=== PATIENT | female | born 1955 | race Caucasian/White ===

== ENCOUNTER → 2016-07-28 | Outpatient (CLI) | payer BC ==
--- NOTE | 2016-07-28 21:56 | PN ---
I am seeing this patient in followup regarding her obstructive sleep apnea. The patient was recently diagnosed having CAMILA, moderate in severity, with an AHI of 18.2, worse during REM. The patient is currently on a CPAP pressure of 10 cm of water. Her compliance data showed excellent CPAP use and she is averaging around 5.7 hours of CPAP use per night. His leak factor is only at 10 L and her AHI while on treatment is down to 1.4 and she is utilizing a full face Simplus mask. She continues to lose weight and she needs to weigh around 278 at the time of diagnosis and currently she is down to 259. She is much more alert and awake during the day. His sleep quality was improved and she is able to sleep better and she denies having any major sleep fragmentation or nocturnal arousals. Her [place] score is only at 5. BP is 140/81, pulse 61, respirations 16, respirations 16, temperature is 97.9. Weight is 259. [place] score is at 5, saturation 97%. GENERAL APPEARANCE: Calm, comfortable. HEENT: Negative for JVD. There is no goiter or neck mass. Chronic posterior pharynx. LUNGS: Clear to auscultation. Heart sounds: Regular rate and rhythm. Normal S1 and S2. No murmurs. ABDOMEN: Soft and nontender. No organomegaly. EXTREMITIES: No edema. No cyanosis or clubbing. IMPRESSION: 1. Symptomatic obstructive sleep apnea with an apnea-hypopnea index of 18.2, worse during rapid eye movement, currently receiving successful continuous positive airway pressure therapy at a pressure of 10. 2. Hypersomnia, improved. 3. Obesity with a body mass index of 33.2, lost weight. Current weight is down to 259. PLAN: 1. Continue treatment at the same level of pressure. 2. Encourage further weight loss. 3. Optimize sleep hygiene measures. 4. See me back in a year's time; earlier if needed.
== END | disposition home or self-care (01) ==
LOC: SLEEP 13:27
PROVIDERS: ATTEND Internal Medicine Critical Care Medicine
DX: G47.33 Obstructive sleep apnea (adult) (pediatric) (principal); G47.10 Hypersomnia, unspecified; E66.9 Obesity, unspecified; Z68.33 Body mass index [BMI] 33.0-33.9, adult

== ENCOUNTER → 2017-02-26 | Outpatient (CLI) | payer BC ==
--- NOTE | 2017-03-01 11:52 | MM ---
Reason for exam: screening (asymptomatic). Last mammogram was performed 1 year ago. History: Patient is postmenopausal. Family history of breast cancer in mother at age 60, breast cancer in maternal aunt at age 60, and breast cancer in maternal cousin at age 58. Physical Findings: A clinical breast exam by your physician is recommended on an annual basis and results should be correlated with mammographic findings. MG Screening Mammo w CAD Bilateral CC and MLO view(s) were taken. Prior study comparison: February 25, 2016, bilateral MG screening mammo w CAD. October 30, 2014, bilateral MG diagnostic mammo w CAD AC. There are scattered fibroglandular densities. There is no discrete abnormality. No significant changes when compared with prior studies. ASSESSMENT: Negative, BI-RAD 1 RECOMMENDATION: Routine screening mammogram of both breasts in 1 year.
== END | disposition home or self-care (01) ==
LOC: RADMAMWWP 10:40
PROVIDERS: ATTEND Family Medicine
DX: Z12.31 Encounter for screening mammogram for malignant neoplasm of breast (principal)

== ENCOUNTER → 2018-03-29 | Outpatient (CLI) | payer BC ==
--- NOTE | 2018-03-31 11:23 | MM ---
Reason for exam: screening (asymptomatic). Last mammogram was performed 1 year and 1 month ago. History: Patient is postmenopausal. Family history of breast cancer in mother at age 60, breast cancer in maternal aunt at age 60, and breast cancer in maternal cousin at age 58. Physical Findings: A clinical breast exam by your physician is recommended on an annual basis and results should be correlated with mammographic findings. MG 3D Screening Mammo W/Cad Bilateral CC and MLO view(s) were taken. CV view(s) were taken of the left breast. Prior study comparison: February 26, 2017, bilateral MG screening mammo w CAD. February 25, 2016, bilateral MG screening mammo w CAD. There are scattered fibroglandular densities. There is no discrete abnormality. No significant changes when compared with prior studies. ASSESSMENT: Negative, BI-RAD 1 RECOMMENDATION: Routine screening mammogram of both breasts in 1 year.
== END | disposition home or self-care (01) ==
LOC: RADMAMWWP 10:46
PROVIDERS: ATTEND Family Medicine
DX: Z12.31 Encounter for screening mammogram for malignant neoplasm of breast (principal)
CPT/HCPCS: 77063; 77067

== ENCOUNTER → 2018-05-13 | Outpatient (CLI) | payer BC ==
--- NOTE | 2018-05-15 17:56 | XR ---
EXAMINATION TYPE: XR Hip Complete RT DATE OF EXAM: 05/13/2018 COMPARISON: NONE HISTORY: Pain TECHNIQUE: 2 views submitted FINDINGS: There is no evidence of erosive change or acute fracture. IMPRESSION: 1. No evidence of acute fracture or dislocation. If symptoms persist recommend MRI.
== END | disposition home or self-care (01) ==
LOC: RADXRMAIN 16:58
PROVIDERS: ATTEND Family Medicine
DX: M25.551 Pain in right hip (principal)
CPT/HCPCS: 73502

== ENCOUNTER → 2019-07-18 | Outpatient (CLI) | payer BC ==
--- NOTE | 2019-07-19 13:05 | MM ---
Reason for exam: screening (asymptomatic). Last mammogram was performed 1 year and 4 months ago. History: Patient is postmenopausal. Family history of breast cancer in mother at age 60, breast cancer in maternal aunt at age 60, and breast cancer in maternal cousin at age 58. Physical Findings: A clinical breast exam by your physician is recommended on an annual basis and results should be correlated with mammographic findings. MG 3D Screening Mammo W/Cad Bilateral CC and MLO view(s) were taken. Prior study comparison: March 29, 2018, bilateral MG 3d screening mammo w/cad. February 26, 2017, bilateral MG screening mammo w CAD. There are scattered fibroglandular densities. There is chronic nodularity in the right breast. Benign vascular calcifications on the right. No significant changes when compared with prior studies. ASSESSMENT: Negative, BI-RAD 1 RECOMMENDATION: Routine screening mammogram of both breasts in 1 year.
== END | disposition home or self-care (01) ==
LOC: RADMAMWWP 10:40
PROVIDERS: ATTEND Family Medicine
DX: Z12.31 Encounter for screening mammogram for malignant neoplasm of breast (principal)
CPT/HCPCS: 77063; 77067

== ENCOUNTER → 2020-02-15 | Outpatient (CLI) | payer BC ==
--- NOTE | 2020-02-19 08:58 | CONS ---
CONSULTATION DATE OF SERVICE: 02/15/2020 A 64-year-old lady who has been evaluated in the Sleep Center for obstructive sleep apnea-hypopnea syndrome. HISTORY OF PRESENT ILLNESS/SLEEP-WAKE EVALUATION: Patient had been diagnosed with obstructive sleep apnea about 4-1/2 years ago. Since that time, she has been on treatment with CPAP and she continues to use her CPAP equipment every night for the whole night. According to her , she does not snore with the machine and she is actually able to sleep through the night without awakenings at night. Her sleep schedule from 12:30 or 1 a.m. until 7:30 or 8 a.m. No problems with falling asleep, although she has a TV set in the bedroom. She usually sleeps on the side position. No history of hypnagogic hallucinations, sleep paralysis or cataplexy. [place] Sleepiness Scale is in normal range of 4. I checked the patient's CPAP unit. CPAP pressure is 10 cm of water. Usage is 26/30 nights for more than 4 hours with average usage 5.4 hours per night. Leak is 16 L/minute, which is borderline. Apnea-hypopnea index only 0.8, which is perfect. The patient is using AirFit F20 small full-face mask. PAST MEDICAL HISTORY: Positive for diabetes mellitus. PAST SURGICAL HISTORY: , cholecystectomy, total hysterectomy. MEDICATIONS: Metformin, baby aspirin. SOCIAL HISTORY: Negative for smoking or using alcohol. REVIEW OF SYSTEMS: Mostly negative. Patient sleeps well at night. FAMILY HISTORY: Hypertension, heart problems, cancer. PHYSICAL EXAMINATION: lady without distress. BP 149/79, HR 71, RR 15, height 4 foot, 11-1/2 inches, weight 270 pounds, body mass index 53.6, temperature 98.4, oxygen saturation at room air 99%. OROPHARYNX: Low position of soft palate. NECK: Wide, measuring, 16 inches in circumference. LUNGS: Clear to percussion and to auscultation. Good air exchange. No wheezing or rhonchi. HEART: S1, S2 regular. No murmurs, gallops or rubs. ABDOMEN: Obese. EXTREMITIES: No clubbing or cyanosis. MACHINE REPAIRER MAINTENANCE: Awake, alert, and oriented X3. Cranial nerves 2 to 7 intact. There is no fasciculation or atrophy. noted. No focal deficits observed. IMPRESSION: 1. Obstructive sleep apnea-hypopnea syndrome diagnosed about 4-1/2 years ago. Patient demonstrated great compliance with treatment, benefitting from treatment. 2. Obesity. 3. Diabetes mellitus. 4. Status post . 5. Status post cholecystectomy. 6. Status post hysterectomy. PLAN: 1. Patient will continue to use CPAP equipment every night for the whole night. 2. Prescription for all necessary CPAP supplies, including full-face mask, tube, filters. 3. Losing weight. 4. Sleep hygiene with regular time in bed for at least 7-1/2 to 8 hours. 5. No driving if feeling any sleepiness. Thank you very much for allowing me to participate in the management of your patient. Sincerely, Triston Guzman MD, PhD, FAASM Diplomat of [place] [employer] [employer] Shop Supervisor of [facility] [place] MMODL / VASYL: [id number] /
== END | disposition home or self-care (01) ==
LOC: SLEEP 15:40
PROVIDERS: ATTEND Internal Medicine
DX: G47.33 Obstructive sleep apnea (adult) (pediatric) (principal); E11.9 Type 2 diabetes mellitus without complications; E66.9 Obesity, unspecified
CPT/HCPCS: 99211

== ENCOUNTER → 2020-07-19 | Outpatient (CLI) | payer BC ==
--- NOTE | 2020-07-22 11:55 | MM ---
Reason for exam: screening (asymptomatic). Last mammogram was performed 1 year ago. History: Patient is postmenopausal. Family history of breast cancer in mother at age 60, breast cancer in maternal aunt at age 60, and breast cancer in maternal cousin at age 58. Physical Findings: A clinical breast exam by your physician is recommended on an annual basis and results should be correlated with mammographic findings. MG 3D Screening Mammo W/Cad Bilateral CC and MLO view(s) were taken. Prior study comparison: July 18, 2019, bilateral MG 3d screening mammo w/cad. March 29, 2018, bilateral MG 3d screening mammo w/cad. There are scattered fibroglandular densities. There is chronic nodularity in the right upper outer quadrant. No significant changes when compared with prior studies. ASSESSMENT: Negative, BI-RAD 1 RECOMMENDATION: Routine screening mammogram of both breasts in 1 year.
== END | disposition home or self-care (01) ==
LOC: RADMAMWWP 10:02
PROVIDERS: ATTEND Family Medicine
DX: Z12.31 Encounter for screening mammogram for malignant neoplasm of breast (principal)
CPT/HCPCS: 77063; 77067

== ENCOUNTER → 2021-03-03 | Outpatient (CLI) | payer MEDICARE ==
--- NOTE | 2021-03-03 12:37 | FL ---
EXAMINATION TYPE: FL barium swallow DATE OF EXAM: 03/03/2021 CLINICAL INDICATION: 65-year-old female R13.19, dysphagia. Intermittent sensation of food sticking in the throat, needing to vomit to clear. COMPARISON: None Total Fluoroscopy Time: 1 minute 33 seconds 40 images obtained. FINDINGS: The swallowing mechanism is normal. Questionable filling defect along the anterior hypopharynx on a c ouple images. Suspect oblique structural overlap as the patient could not completely position squarel y for a lateral view. Otherwise, the cervical and thoracic portions have a normal course and caliber. Mild tertiary perista ltic waves are demonstrated within the thoracic esophagus. The mucosa is normal and otherwise no persistent filling defect is encountered. There is a small hiatal hernia. No gastroesophageal reflux was visualized or could be elicited during the course of the exam. IMPRESSION: 1. Questionable filling defect along the anterior hypopharynx on a couple images (image 10, 11, and 2 8). Suspect structure overlap due to oblique positioning. Given the patient's symptoms localizing to this level, direct visualization to exclude a mucosal lesion. 2. Small hiatal hernia. No gastroesophageal reflux identified. 3. Mild age-related dysmotility.
== END | disposition home or self-care (01) ==
LOC: RADUSWWP 09:02
PROVIDERS: ATTEND Family Medicine
DX: K44.9 Diaphragmatic hernia without obstruction or gangrene (principal); R13.19 Other dysphagia
CPT/HCPCS: 74220

== ENCOUNTER 2021-05-15 10:55 | Day surgery (SDC) | payer MEDICARE ==
[2021-05-13 15:48] VITALS: BMI 45.8
[~2021-05-15 10:55] MED LIST: DEXAMETHASONE SOD PHOSPHATE 4 MG/ML 1 ML VIAL IV ONE; DEXAMETHASONE SOD PHOSPHATE 4 MG/ML 1 ML VIAL IV PRN; FAMOTIDINE 20 MG/2 ML VIAL IV PRN; HYDROmorphone 0.5 MG/0.5 ML SYRINGE IVP PRN; LACTATED RINGERS 1,000 ML IV SCH; LIDOCAINE 1% (10MG/ML) FOR IV START INTRADERMA PRN; MIDAZOLAM 2 MG/2 ML VIAL IV PRN; ONDANSETRON 4 MG/2 ML VIAL IVP ONE; ONDANSETRON 4 MG/2 ML VIAL IVP PRN
[2021-05-15 12:12] LABS: Glucose,Whole Blood 138 mg/dL (75-99)
[2021-05-15] MEDS ORDERED: LIDOCAINE 1% INJ 10MG/ML (20 ML MDV) ONE (14:30)
[2021-05-15] MEDS ORDERED: .fentaNYL (PF) 50 MCG/ML 2 ML AMP ONE (14:30)
[2021-05-15] MEDS ORDERED: MIDAZOLAM 2 MG/2 ML VIAL ONE (14:30)
[2021-05-15] MEDS ORDERED: PROPOFOL 10 MG/ML 20 ML VIAL IV ONE (14:30)
[2021-05-15] MEDS ORDERED: SUCCINYLCHOLINE CHLORIDE 100 MG/5 ML SYR IV ONE (14:30)
[2021-05-15] MEDS ORDERED: LACTATED RINGERS 1,000 ML IV ONE (15:20)
--- NOTE | 2021-05-15 15:37 | P.OP ---
Description of Procedure: This patient was taken to the operative room and placed in the supine position. A general inhalation anesthetic was administered to the patient by mask and intubated with a #5 ZINC PLATER tube. The patient was monitored throughout the entire case by the department of anesthesia. A tooth and gum guard was placed and a Jako laryngoscope was placed into the mouth with care to avoid any trauma to the lips teeth gums or tongue. The entire oropharynx and hypopharynx was evaluated. Reevaluated the base of tongue, vallecula, epiglottis, true and false vocal cords, lateral pharynx, postcricoid space, piriform sinuses, etc. etc. This was then placed on suspension on a Lewy and with use of a high-powered microscope examination was performed. Patient had a lymphoid mass on the base of the tongue that was biopsied. They tissue specimen was sent in saline fresh to rule out lymphoma. Bleeding stopped spontaneously and with use of adrenaline cottonoids and pressure. Excellent results were obtained. all instrumentation was removed. Patient was taken to postanesthesia recovery in excellent condition.
[2021-05-15 15:42] VITALS: TEMP 97.6
[2021-05-15 16:44] VITALS: RESP 18
[2021-05-15 16:57] VITALS: BP 140/76; PULSE 82
== END 2021-05-15 17:29 | disposition home or self-care (01) ==
LOC: OR 10:55
PROVIDERS: ATTEND Otolaryngology
DX: K14.8 Other diseases of tongue (principal); D49.0 Neoplasm of unspecified behavior of digestive system; E11.9 Type 2 diabetes mellitus without complications; Z98.891 History of uterine scar from previous surgery; Z90.710 Acquired absence of both cervix and uterus; Z98.890 Other specified postprocedural states; Z82.49 Family history of ischemic heart disease and other diseases of the circulatory system; Z80.3 Family history of malignant neoplasm of breast; Z80.0 Family history of malignant neoplasm of digestive organs; Z80.1 Family history of malignant neoplasm of trachea, bronchus and lung; Z83.3 Family history of diabetes mellitus; Z83.42 Family history of familial hypercholesterolemia; Z79.84 Long term (current) use of oral hypoglycemic drugs; Z79.82 Long term (current) use of aspirin; Z79.899 Other long term (current) drug therapy
CPT/HCPCS: 31536; J2250; J1100; J2405; J2001; J3010; J0330; J2704; J1170

== ENCOUNTER → 2021-10-29 | Outpatient (CLI) | payer MEDICARE ==
--- NOTE | 2021-10-29 18:46 | SFUN ---
SLEEP CENTER FOLLOW UP NOTE DATE OF SERVICE: 10/29/2021 This 66-year-old lady has been followed in Sleep Center for treatment of obstructive sleep apnea-hypopnea syndrome. The patient continues to use her CPAP equipment every night for the whole night. She needs a prescription to renew her CPAP supplies. The last time I saw this patient was about one and a half years ago. [place] Sleepiness Scale is 5, which is normal. I checked her CPAP unit. Pressure is 10 cm of water. Usage is 30/30 nights and 24/30 nights for more than 4 hours, average 5.5 hours per night. Leak is 11 L/minute, which is in normal range. Apnea-hypopnea index is only 0.6, which is totally normal. MEDICATIONS: Metformin 500 mg twice a day, atorvastatin 20 mg once a day, aspirin 81 mg once a day. PHYSICAL EXAMINATION: GENERAL: Pleasant lady without distress. VITAL SIGNS: BP 132/80, HR 77, RR 12, height 5 feet 1 inch, weight 260 pounds. Patient lost about 10 pounds since previous visit. Temperature 97.0, oxygen saturation at room air 98%. Body mass index 48.9. HEENT: PERRLA, EOMI, evaluation of oropharynx showed tongue protrudes midline. Low position of soft palate. NECK: Supple, no JVD. Thyroid is not palpable. Neck measures 16 inches in circumference. LUNGS: Clear to percussion and to auscultation. Good air exchange. No wheezing or rhonchi. HEART: S1, S2 regular. No murmurs, gallops, or rubs. ABDOMEN: Obese. EXTREMITIES: No clubbing or cyanosis. PLASTIC OUTFITTER: Awake, alert, and oriented X3. Cranial nerves 2 to 7 intact. There is no fasciculation or atrophy. noted. No focal deficits observed. IMPRESSION: 1. Obstructive sleep apnea-hypopnea syndrome. Patient demonstrated great compliance with treatment, benefitting from treatment. Normal respiration on CPAP. 2. Obesity. Patient lost 10 pounds since previous visit. 3. Diabetes mellitus. 4. Status post . 5. Status post cholecystectomy. 6. Status post hysterectomy. PLAN: 1. Patient will continue to use PAP equipment every night for the whole night. 2. Sleep hygiene with regular time in bed for at least 7-1/2 to 8 hours. 3. Precautions related to driving. No driving if feeling sleepiness. 4. I will maintain all necessary prescription for PAP supplies including mask, tube, filters. 5. Watching weight. 6. Follow-up visit in 6 months or earlier if patient has any problems. Thank you very much for allowing me to participate in the management of your patient. Sincerely, Triston Guzman MD, PhD, FAASM Diplomat of [place] [employer] Sleep Medicine Board of [place] [employer] Deputy Sheriff Generalist of [facility] [place] MMODL / IJN: [id number] /
== END | disposition home or self-care (01) ==
LOC: SLEEP 13:02
PROVIDERS: ATTEND Internal Medicine
DX: G47.33 Obstructive sleep apnea (adult) (pediatric) (principal); E66.9 Obesity, unspecified; E11.9 Type 2 diabetes mellitus without complications; Z90.49 Acquired absence of other specified parts of digestive tract; Z90.79 Acquired absence of other genital organ(s); Z98.890 Other specified postprocedural states

== ENCOUNTER → 2022-09-07 | Outpatient (CLI) | payer MEDICARE ==
--- NOTE | 2022-09-07 13:22 | BD ---
EXAMINATION TYPE: Axial Bone Density DATE OF EXAM: 09/07/2022 CLINICAL HISTORY: 67 years old Female. ICD-10 CODE: Z78.0 MENOPAUSAL STATE Height: 62 Weight: 251.3 FRAX RISK QUESTIONS: Alcohol (3 or more units per day): no Family History (Parent hip fracture): no Glucocorticoids (More than 3mos): no (Ex: prednisone, prednisolone, methylprednisolone, dexamethasone, and hydrocortisone). History of Fracture in Adulthood: no Secondary Osteoporosis: 1. Type 1 Diabetes: no 2. Hyperthyroidism: no 3. Menopause before 45: no 4. Malnutrition: no 5. Chronic liver disease: no Rheumatoid Arthritis: no Current Tobacco Use: no RISK FACTORS HISTORY OF: Surgery to Spine/Hip(right/left)/Wrist (right/left): no Family History of Osteoporosis: no Active: no Diet low in dairy products/other sources of calcium: no Postmenopausal woman: yes Lost more than 2 inches in height since high school: no MEDICATIONS: Additional History: EXAM MEASUREMENTS: Bone mineral densitometry was performed using the Fluidigm System. Bone mineral density as measured about the Lumbar spine is: ----- L1-L4(G/cm2): 1.294 T Score Values are as follows: ----- L1: 0.3 ----- L2: 0.3 ----- L3: 1.4 ----- L4: 1.2 ----- L1-L4: 0.9 Z Score Values are as follows: ----- L1: 0.8 ----- L2: 0.8 ----- L3: 1.9 ----- L4: 1.7 ----- L1-L4: 1.4 Bone mineral density : baseline Bone mineral density about the R hip (g/cm2): 0.989 Bone mineral density about the L hip (g/cm2): 1.004 T Score values are as follows: -----R Neck: -1.3 -----L Neck: -1.3 -----R Total: -0.1 -----L Total: 0.0 Z Score values are as follows: -----R Neck: 0.3 -----L Neck: 0.4 -----R Total: -0.5 -----L Total: -0.6 Bone mineral density : baseline FRAX%s: The graph provided illustrates a 7.5% chance for a major osteoporotic fx and a 0.7% chance fo r the hips probability for fx in 10 years time. IMPRESSION: Osteopenia (T Score between -2.5 and -1). There is slightly increased risk of fracture and the patient may be considered for treatment. Re-Screen 2-5 years. NOTE: T-SCORE=SD OF THE YOUNG ADULT MEAN.
--- NOTE | 2022-09-08 11:29 | MM ---
Reason for Exam: Screening (asymptomatic). Last screening mammogram was performed 12 month(s) ago. Patient History: Menarche at age 12. First Full-Term at age 21. Left ovary removed at age 52. Right ovary removed at age 52. Hysterectomy at age 52. Postmenopausal. Maternal cousin had breast cancer, age 58. Maternal aunt had breast cancer, age 60. Mother had breast cancer, age 60. Risk Values: Mary 5 year model risk: 3.5%. NCI Lifetime model risk: 12.3%. Prior Study Comparison: 07/18/2019 Bilateral Screening Mammogram, [facility]. 07/19/2020 Bilateral Screening Mammogram, [facility]. 09/04/2021 Bilateral Screening Mammogram, [facility]. Tissue Density: The breast tissue is almost entirely fat. Findings: Analyzed By CAD. There is no suspicious group of microcalcifications or new suspicious mass in either breast. Overall Assessment: Negative, BI-RAD 1 Management: Screening Mammogram of both breasts in 1 year. A clinical breast exam by your physician is recommended on an annual basis and results should be correlated with mammographic findings. [facility] will attempt to contact patient to return for supplemental views and ultrasound if indicated. Electronically signed and approved by: Manjeet Hess DO
== END | disposition home or self-care (01) ==
LOC: RADMAMWWP 09:08
PROVIDERS: ATTEND Family Medicine
DX: Z12.31 Encounter for screening mammogram for malignant neoplasm of breast (principal); M85.89 Other specified disorders of bone density and structure, multiple sites; Z78.0 Asymptomatic menopausal state; Z80.3 Family history of malignant neoplasm of breast
CPT/HCPCS: 77063; 77067; 77080

== ENCOUNTER → 2023-01-08 | Outpatient (CLI) | payer MEDICARE ==
--- NOTE | 2023-01-08 09:07 | US ---
EXAMINATION TYPE: US liver DATE OF EXAM: 01/08/2023 COMPARISON: NONE CLINICAL INDICATION: Female, 67 years old with history of E04.1 nodule, R74.01 elevated levels; [place] jenelle LFT's, GB surgically removed TECHNIQUE: Multiple sonographic images of the right upper quadrant are obtained. FINDINGS: EXAM MEASUREMENTS: Liver Length: 16.9 cm CBD: 0.5 cm Right Kidney: 10.3 x 4.8 x 5.1 cm EPIC AMBULATORY ANALYSTS NOTES: Pancreas: wnl, tail obscured by overlying bowel gas Liver: Heterogeneous, difficult is to penetrate Gallbladder: Surgically absent Evidence for sonographic Domingo's sign: No CBD: wnl Right Kidney: wnl, lower pole gassed out IMPRESSION: Underlying hepatic steatosis. Otherwise unremarkable study.
--- NOTE | 2023-01-08 09:12 | US ---
EXAMINATION TYPE: US thyroid st tissue head/neck DATE OF EXAM: 01/08/2023 COMPARISON: US CLINICAL INDICATION: Female, 67 years old with history of E04.1 nodule, R74.01 elevated levels; F/U n odule GLAND SIZE: Right Lobe: 6.3 x 2.5 x 2.3 cm Overall Parenchyma: heterogenous Left Lobe: 5.6 x 2.1 x 2.4 cm Overall Parenchyma: heterogenous Isthmus Thickness: 0.7 cm NODULES RIGHT: # of nodules measured on right: 1 1. 0.6 X 0.6 x 0.5 cm, mid, mixed cystic and solid, hypoechoic nodule, which is wider than tall, wi th smooth margins, without echogenic foci. Prior size: 0.6 x 0.5 x 0.4 cm LEFT: # of nodules measured on left: 0 ISTHMUS: # of nodules measured in the isthmus: 0 Bilateral neck scanned, no evidence of lymphadenopathy. Stable sub-centimeter nodule right lobe. Thy roid enlarged and appeared hypervascular. IMPRESSION: Mildly Suspicious: FNA if ? 2.5 cm; Follow if ? 1.5 cm at 1, 3, and 5 y 2017 ACR TI-RADS LEVEL: TR3 *Highest TI-RADS level nodule reported
== END | disposition home or self-care (01) ==
LOC: RADUSWWP 08:12
PROVIDERS: ATTEND Family Medicine
DX: E04.1 Nontoxic single thyroid nodule (principal); K76.0 Fatty (change of) liver, not elsewhere classified; R74.01 Elevation of levels of liver transaminase levels; Z90.49 Acquired absence of other specified parts of digestive tract
CPT/HCPCS: 76536; 76705

== ENCOUNTER → 2023-01-28 | Outpatient (CLI) | payer MEDICARE ==
--- NOTE | 2023-01-28 12:42 | P.PN ---
Subjective DATE: 01/28/2023 FOLLOW UP VISIT. Patient with obstructive sleep apnea hypopnea syndrome return to sleep center for follow-up visit. Information from previous visit have been reviewed. Patient is using PAP equipment every night for the whole night, getting PAP supplies in time. The patient does not have significant problems with the mask, PAP unit and humidification. [place] sleepiness scale is 3, which is normal. I checked information from PAP unit. PAP unit pressure 10 cm H2O. Usage is 100 % for more then 4 hours, average 6.2 hours per night. Leak is 10 l/m, which is in acceptable range. Apnea Hypopnea Index is 0.7, which is normal. MEDICATIONS:1. Metformin 500 mg 2 tablets in the morning and 1 tablet PM 2. Atorvastatin 20 mg half tablet once a day During physical exam: GENERAL: A pleasant patient without any distress. VITAL SIGNS: BP 141/84, HR 81, RR 12 , weight 248.8, temperature 96.7, oxygen saturation at room air 98 % . HEENT: PERRLA, EOMI.low position of soft palate, [place] 3 . NECK: Supple. No JVD. LUNGS: Clear to percussion and to auscultation. Good air exchange. No wheezing or rhonchi. HEART: S1, S2 regular. ABDOMEN: Soft and nontender. Obese EXTREMITIES: No clubbing or cyanosis. GAS ENGINE MECHANIC: Awake, alert, and oriented x3. No focal deficit. Impressions: 1. Obstructive sleep apnea-hypopnea syndrome. Patient demonstrated great compliance with treatment, benefiting from treatment. 2. Obesity BMI 46.8. 3. Diabetes mellitus recent hemoglobin A1c 6.7. 4. Status post cholecystectomy. 5. Status post hysterectomy. 6. Status post . 7. Hyperlipidemia. Plan: 1. Continue using PAP equipment every night for the whole night. 2. To change air filter at least 1-2 times per month. 3. PAP unit should stay lower then position of the head. 4. Advised patient to remove all remaining water from humidifier canister daily and make it dry after each usage. Refill canister with fresh distilled water before each usage. 5. Sleep hygiene with regular time in bed for at least 8 hours. 6. Precautions related to driving. No driving if feel any sleepiness. 7. I will maintain prescription for PAP supplies including mask, tube, filters. 8. Follow up visit in 6 months or earlier if patient has any problems. 9. Watching and losing weight. Thank you very much for allowing me to participate in the management of your patient. Triston Guzman MD, PhD, FAASM. Diplomat of [place] [employer], Sleep Medicine Board by [place] [employer] Electric Organ Inspector And Repairer of [facility] [place]
== END ==
LOC: 3 N SLEEP 11:18
PROVIDERS: ATTEND Internal Medicine
DX: G47.33 Obstructive sleep apnea (adult) (pediatric) (principal); E11.9 Type 2 diabetes mellitus without complications; E66.9 Obesity, unspecified; E78.5 Hyperlipidemia, unspecified; Z68.42 Body mass index [BMI] 45.0-49.9, adult; Z79.84 Long term (current) use of oral hypoglycemic drugs; Z79.899 Other long term (current) drug therapy; Z90.49 Acquired absence of other specified parts of digestive tract; Z90.710 Acquired absence of both cervix and uterus; Z98.890 Other specified postprocedural states; Z99.89 Dependence on other enabling machines and devices
CPT/HCPCS: 99212

== ENCOUNTER → 2023-08-11 | Outpatient (CLI) | payer MEDICARE ==
[2023-08-11 11:10] VITALS: BP 131/81; PULSE 83; RESP 14; TEMP 98
--- NOTE | 2023-08-11 11:52 | P.SLEEP ---
History of Present Illness DATE: 08/11/2023 FOLLOW UP VISIT. Patient with obstructive sleep apnea hypopnea syndrome return to sleep center for follow-up visit. Information from previous visit have been reviewed. Patient is using PAP equipment every night for the whole night, getting PAP supplies in time. The patient does not have significant problems with the mask, PAP unit and humidification. Recently patient developed some changes to her voice, under evaluation by ear nose and throat physician. [place] sleepiness scale is 5, which is normal. I checked information from PAP unit. PAP unit pressure 10 cm H2O. Usage is 100% for more then 4 hours, average 6.2 hours per night. Leak is 16.6 l/m, which is in acceptable range. Apnea Hypopnea Index is 0.6, which is normal. MEDICATIONS: See below During physical exam: GENERAL: A pleasant patient without any distress. VITAL SIGNS: See below. HEENT: PERRLA, EOMI.low position of soft palate, Mallapati 4 . NECK: Supple. No JVD. LUNGS: Clear to percussion and to auscultation. Good air exchange. No wheezing or rhonchi. HEART: S1, S2 regular. ABDOMEN: Soft and nontender.[] EXTREMITIES: No clubbing or cyanosis. OPTIMIZATION SPECIALIST: Awake, alert, and oriented x3. No focal deficit. Impressions: 1. Obstructive sleep apnea-hypopnea syndrome. Patient demonstrated great compliance with treatment, benefiting from treatment. 2. Recently patient developed some voice changes, under evaluation by ear nose and throat physician. 3. Obesity. 4. Diabetes mellitus. 5. Hyperlipidemia. 6. Status post hysterectomy. 7. Status post . 8. Status post cholecystectomy. I changed regimen on CPAP unit down to AutoPAP 5 to 8 cm of water. Plan: 1. Continue using PAP equipment every night for the whole night. 2. To change air filter at least 1-2 times per month. 3. PAP unit should stay lower then position of the head. 4. Advised patient to remove all remaining water from humidifier canister daily and make it dry after each usage. Refill canister with fresh distilled water before each usage. 5. Sleep hygiene with regular time in bed for at least 8 hours. 6. Precautions related to driving. No driving if feel any sleepiness. 7. I will maintain prescription for PAP supplies including mask, tube, filters. 8. Follow up visit in 2 months or earlier if patient has any problems. 9. Watching and losing weight. Thank you very much for allowing me to participate in the management of your patient. Triston Guzman MD, PhD, FAASM. Diplomat of [place] [employer], Sleep Medicine Board by [place] [employer] Steam Table Attendant of [facility] [place] Past Medical History Past Medical History: Diabetes Mellitus Additional Past Medical History / Comment(s): "intermittently having food getting stuck in my throat,looks like something is not right in my throat on the barium swallow" History of Any Multi-Drug Resistant Organisms: None Reported Past Surgical History: Section, Cholecystectomy, Tonsillectomy Additional Past Surgical History / Comment(s): c sect x3,colonoscopies, hysterectomy, gall bladder removal Past Anesthesia/Blood Transfusion Reactions: Motion Sickness Past Psychological History: No Psychological Hx Reported Smoking Status: Never smoker Past Alcohol Use History: None Reported Past Drug Use History: None Reported - Past Family History Mother Family Medical History: Cancer Father Family Medical History: Cancer Son(s) Family Medical History: Cancer Medications and Allergies Home Medications Medication Instructions Recorded Confirmed Type metFORMIN HCL 500 mg PO BID 05/13/21 08/11/23 History Atorvastatin [Lipitor] 10 mg PO DAILY 08/11/23 08/11/23 History Allergies Allergy/AdvReac Type Severity Reaction Status Date / Time No Known Allergies Allergy Verified 05/15/21 11:49 Physical Exam Vitals: Vital Signs Temp Pulse Resp BP Pulse Ox 08/11/23 10:54 98.0 F 83 14 131/81 100 Intake and Output 08/10/23 08/11/23 08/11/23 22:59 06:59 14:59 Other: Weight 109.769 kg Sleep Note - Sleep Data ESS Total: 5 - Sleep Note Sleep Note: Temperature: 98.0 F Pulse Rate: 83 Respiratory Rate: 14 Blood Pressure: 131/81 SpO2: 100 Height: 5 ft 2 in Weight: 109.769 kg BMI: Neck Circumference:
== END ==
LOC: 3 N SLEEP 10:40
PROVIDERS: ATTEND Internal Medicine
DX: G47.33 Obstructive sleep apnea (adult) (pediatric) (principal); R49.8 Other voice and resonance disorders; E66.9 Obesity, unspecified; E11.9 Type 2 diabetes mellitus without complications; E78.5 Hyperlipidemia, unspecified; Z98.890 Other specified postprocedural states; Z99.89 Dependence on other enabling machines and devices; Z90.710 Acquired absence of both cervix and uterus; Z90.49 Acquired absence of other specified parts of digestive tract; Z79.84 Long term (current) use of oral hypoglycemic drugs
CPT/HCPCS: 99212

== ENCOUNTER → 2023-09-15 | Outpatient (CLI) | payer MEDICARE ==
--- NOTE | 2023-09-15 12:52 | MM ---
Reason for Exam: Screening (asymptomatic). Last screening mammogram was performed 12 month(s) ago. Patient History: Menarche at age 12. First Full-Term at age 21. Left ovary removed at age 52. Right ovary removed at age 52. Hysterectomy at age 52. Postmenopausal. Maternal cousin had breast cancer, age 58. Maternal aunt had breast cancer, age 60. Mother had breast cancer, age 60. Risk Values: Mary 5 year model risk: 3.5%. NCI Lifetime model risk: 11.8%. Prior Study Comparison: 07/19/2020 Bilateral Screening Mammogram, [facility]. 09/04/2021 Bilateral Screening Mammogram, [facility]. 09/07/2022 Bilateral MG 3D screening mammo w/cad, [facility]. Tissue Density: There are scattered areas of fibroglandular density. Findings: Analyzed By CAD. The pattern is symmetrical. Benign rounded calcifications are present on the right. No suspicious groups of microcalcifications, spiculated or lobular masses, architectural distortion or other secondary signs of malignancy are mammographically apparent. Overall Assessment: Benign, BI-RAD 2 Management: Screening Mammogram of both breasts in 1 year. A negative mammogram report should not preclude additional follow up of suspicious palpable abnormalities. Patient should continue monthly self breast exam. A clinical breast exam by your physician is recommended on an annual basis and results should be correlated with mammographic findings. Note on Mary scores and lifetime risk: 1. A Mary score greater than 3% is considered moderate risk. If this is the case, consider specialist referral to assess eligibility for a risk reducing agent. 2. If overall lifetime risk for the development of breast cancer is 20% or higher, the patient may qualify for future screening with alternating mammogram and breast MRI. Electronically signed and approved by: Tony Adair D.O. Radiologis
== END | disposition home or self-care (01) ==
LOC: RADMAMWWP 10:49
PROVIDERS: ATTEND Family Medicine
DX: Z12.31 Encounter for screening mammogram for malignant neoplasm of breast (principal); Z78.0 Asymptomatic menopausal state; Z80.3 Family history of malignant neoplasm of breast
CPT/HCPCS: 77063; 77067

== ENCOUNTER → 2023-10-07 | Outpatient (CLI) | payer MEDICARE ==
[2023-10-07 19:20] LABS: Basophils # (A) 0.09 X 10*3/uL (0.00-0.10); Basophils % (A) 1.1 %; Eosinophils # (A) 0.62 X 10*3/uL (0.04-0.35); Eosinophils % (A) 7.3 %; HCT 42.5 % (37.2-46.3); Lymphocytes # (A) 2.66 X 10*3/uL (0.90-5.00); Lymphocytes % (A) 31.2 %; MCH 31.9 pg (27.0-32.0); MCHC 32.9 g/dL (32.0-37.0); MCV 96.8 FL (80.0-97.0); Mean Platelet Volume 11.9 FL (9.5-12.2); Monocytes # (A) 0.55 X 10*3/uL (0.20-1.00); Monocytes % (A) 6.4 %; NRBC Per 100 WBC 0 X 10*3/uL (0.00-0.01); Neutrophils # (A) 4.59 X 10*3/uL (1.80-7.70); Neutrophils % (A) 53.8 %; Platelet Count 254 X 10*3/uL (140-440); RBC 4.39 X 10*6/uL (4.10-5.20); RDW 13.1 % (11.5-14.5); WBC 8.53 X 10*3/uL (4.50-10.00)
[2023-10-08 02:11] LABS: ALT 34 U/L (8-44); AST 29 U/L (13-35); Albumin 4.5 g/dL (3.8-4.9); Albumin/Globulin Ratio 1.88 Ratio (1.60-3.17); Alkaline Phosphatase 116 U/L (41-126); BUN/Creat Ratio 21.56 Ratio (12.00-20.00); Blood Urea Nitrogen 19.4 mg/dL (9.0-27.0); Calcium 9.8 mg/dL (8.7-10.3); Carbon Dioxide 26.3 mmol/L (21.6-31.8); Chloride 105 mmol/L (96-109); Globulin 2.4 g/dL (1.6-3.3); Glucose 118 mg/dL (70-110); Potassium 4.8 mmol/L (3.5-5.5); Sodium 145 mmol/L (135-145); Total Bilirubin 0.3 mg/dL (0.3-1.2); Total Protein 6.9 g/dL (6.2-8.2)
== END | disposition home or self-care (01) ==
LOC: LABWHC1 14:57
PROVIDERS: ATTEND Family Medicine
DX: Z01.812 Encounter for preprocedural laboratory examination (principal); E11.65 Type 2 diabetes mellitus with hyperglycemia
CPT/HCPCS: 36415; 80053; 83036; 84443; 85025

== ENCOUNTER → 2024-01-06 | Outpatient (CLI) | payer MEDICARE | LOC: 3 N SLEEP 11:01 | PROVIDERS: ATTEND Internal Medicine | CPT/HCPCS: 99212 ==

== ENCOUNTER → 2024-11-09 | Outpatient (CLI) | payer MEDICARE ==
[2024-11-09 14:04] VITALS: BP 128/78; PULSE 76; RESP 16; TEMP 97.5
--- NOTE | 2024-11-09 14:17 | P.PROGSL ---
Subjective DATE: 11/09/2024 FOLLOW UP VISIT. Patient with obstructive sleep apnea hypopnea syndrome return to sleep center for follow-up visit. Information from previous visit have been reviewed. Patient is using PAP equipment every night for the whole night, getting PAP supplies in time. The patient does not have significant problems with the mask, PAP unit and humidification. [place] sleepiness scale is 3, which is normal. I checked information from PAP unit. PAP unit pressure 5-8, average 7.9 cm H2O. Usage is 98% for more then 4 hours, average 5.0 hours per night. Leak is 4 l/m, which is in acceptable range. Apnea Hypopnea Index is 0.4, which is normal. MEDICATIONS have been reviewed, please see below. During physical exam: GENERAL: A pleasant patient without any distress. VITAL SIGNS: Please see below, weight is 235.1 lbs. HEENT: PERRLA, EOMI.low position of soft palate, Mallapati 3. NECK: Supple. No JVD. LUNGS: Clear to percussion and to auscultation. Good air exchange. No wheezing or rhonchi. HEART: S1, S2 regular. ABDOMEN: Soft and nontender. Obese EXTREMITIES: No clubbing or cyanosis. DIGITAL DEVELOPER: Awake, alert, and oriented x3. No focal deficit. Impressions: 1. Obstructive sleep apnea-hypopnea syndrome. Patient demonstrated great compliance with treatment, benefiting from treatment. 2. Obesity, BMI 45.1. 3. Benign laryngeal tumor, voice changes. 4. Diabetes mellitus. 5. Hyperlipidemia. 6. History of recent bronchitis. 7. Status post tonsillectomy. 8. Status post total hysterectomy. 9. Status post cholecystectomy. 10. Status post appendectomy. Plan: 1. Continue using PAP equipment every night for the whole night. 2. Sleep hygiene with regular time in bed for at least 7.5-8 hours 3. PAP unit should stay lower then position of the head. 4. Advised patient to remove all remaining water from humidifier canister daily and make it dry after each usage. Refill canister with fresh distilled water be fore each usage. 5. Watching weight. 6. Precautions related to driving. No driving if feel any sleepiness. 7. I will maintain prescription for PAP supplies including mask, tube, filters. 8. Follow up visit in 8 months or earlier if patient has any problems. Thank you very much for allowing me to participate in the management of your patient. Triston Guzman MD, PhD, FAASM. Diplomat of [place] [employer], Sleep Medicine Board by [place] [employer] Supervisor [employer] [facility] [place] Objective - Vital Signs Vital Signs: Vital Signs Temp 97.5 F L 11/09/24 14:02 Pulse 76 11/09/24 14:02 Resp 16 11/09/24 14:02 BP 128/78 11/09/24 14:02 Pulse Ox 98 11/09/24 14:02 FiO2 Intake & Output 11/08/24 11/09/24 11/09/24 18:59 06:59 18:59 Weight 106.623 kg Home Medications: Home Medications Medication Instructions Recorded Confirmed Type metFORMIN HCL 500 mg PO BID 05/13/21 11/09/24 History Atorvastatin [Lipitor] 10 mg PO DAILY 08/11/23 11/09/24 History
== END ==
LOC: 3 N SLEEP 13:50
PROVIDERS: ATTEND Internal Medicine
DX: G47.33 Obstructive sleep apnea (adult) (pediatric) (principal); E66.9 Obesity, unspecified; D14.1 Benign neoplasm of larynx; E11.9 Type 2 diabetes mellitus without complications; E78.5 Hyperlipidemia, unspecified; Z87.09 Personal history of other diseases of the respiratory system; Z90.49 Acquired absence of other specified parts of digestive tract; Z68.42 Body mass index [BMI] 45.0-49.9, adult; Z90.89 Acquired absence of other organs; Z90.710 Acquired absence of both cervix and uterus
CPT/HCPCS: 99212